=== PATIENT | male | born 1960 | race Caucasian/White ===

== ENCOUNTER 2017-02-07 10:48 | Day surgery (SDC) | payer BC ==
[2017-02-07] VITALS (10 sets, daily range): BP systolic 90–129; BP diastolic 55–80; PULSE 69–114; RESP 17–37; Ht 177.8 cm; Wt 89.0 kg
[~2017-02-07] VITALS: Ht 177.8 cm; Wt 89.0 kg
[~2017-02-07 10:48] MED LIST: CEFAZOLIN 2 GM/50 ML (PMX) 50 ML IVPB SCH; LANTUS; OXYC-284 PO; REGULAR INSULIN; SOD CHLORIDE 0.9% 1,000 ML IV SCH
[2017-02-07] MEDS ORDERED: FENTAnyl 50 MCG/ML VIAL IV PRN (11:30)
[2017-02-07] MEDS ORDERED: hydrALAzine 20 MG INJ IV PRN (11:30)
[2017-02-07] MEDS ORDERED: HYDROmorphONE (0.2 MG/ML) 10ML SYG IV PRN ×2 (11:30)
[2017-02-07] MEDS ORDERED: LABETALOL HCL 20MG INJ IV PRN (11:30)
[2017-02-07 11:42] LABS: BASOPHIL # 0.1 10^3/ul (0.0-0.1); BASOPHILS % 0.8 % (0.0-2.0); EOSINOPHILS # 0.3 10^3/ul (0.0-0.5); EOSINOPHILS % 2.9 % (0.0-7.0); HEMATOCRIT 47.2 % (42.0-52.0); HEMOGLOBIN 16.2 g/dl (14.0-18.0); LYMPHOCYTES # 2.2 10^3/ul (0.8-2.9); LYMPHOCYTES % 21.9 % (15.0-51.0); MEAN CORPUSCULAR HEMOGLOBIN 30.7 pg (29.0-33.0); MEAN CORPUSCULAR HGB CONC 34.3 g/dl (32.0-37.0); MEAN CORPUSCULAR VOLUME 89.4 fl (82.0-101.0); MEAN PLATELET VOLUME 10.4 fl (7.4-10.4); MONOCYTE # 0.8 10^3/ul (0.3-0.9); MONOCYTES % 7.5 % (0.0-11.0); NEUTROPHIL # 6.6 10^3/ul (1.6-7.5); PLATELET COUNT 284 10^3/UL (140-415); RED BLOOD COUNT 5.28 10^6/ul (4.70-6.10); RED CELL DISTRIBUTION WIDTH 13.6 % (11.5-14.5)
[2017-02-07 11:59] LABS: INR 0.92; PROTIME 12.4 Sec (12.2-14.2)
[2017-02-07 12:00] LABS: PARTIAL THROMBOPLASTIN TIME 29.2 Sec (25.0-35.0)
[2017-02-07] MEDS ORDERED: INSULIN REGULAR, HUMAN 100 UNIT/1 ML 3ML VIAL SC ONE (12:00)
[2017-02-07 12:01] LABS: ALBUMIN 4.4 g/dl (3.3-4.9); ALBUMIN/GLOBULIN RATIO 1.46; BILIRUBIN,INDIRECT 0.2 mg/dl (0-1.1); BILIRUBIN,TOTAL 0.2 mg/dl (0.2-1.3); TOTAL PROTEIN 7.4 g/dl (6.1-8.1)
[2017-02-07 12:11] LABS: CALCIUM 9.6 mg/dl (8.4-10.2); CREATININE 0.65 mg/dl (0.61-1.24); POTASSIUM 4.5 mmol/L (3.5-5.1)
[2017-02-07] MEDS ORDERED: FENTAnyl 50 MCG/ML VIAL ONE (12:15)
[2017-02-07] MEDS ORDERED: ACETAMINOPHEN 1000MG/100ML IV 100 ML ONE (12:15)
[2017-02-07] MEDS ORDERED: DEXAMETHASONE 4 MG/ML 1 ML INJ ONE (12:15)
[2017-02-07] MEDS ORDERED: ONDANSETRON 4 MG INJ ONE (12:15)
[2017-02-07] MEDS ORDERED: PROPOFOL 20 ML ONE (12:15)
[2017-02-07] MEDS ORDERED: MIDAZOLAM 1 MG/ML 2 ML INJ ONE (12:15)
--- NOTE | 2017-02-07 12:30 | RADRPT ---
PROCEDURE: XR Chest. CLINICAL INDICATION: Preoperative, mass TECHNIQUE: Single frontal view of the chest was obtained COMPARISON: None FINDINGS: The heart and mediastinum are within normal limits. The lungs are clear. There is no pleural effusion or pneumothorax. RPTAT: AA IMPRESSION: No acute disease. .vIan Brock MD, MD Date Time Electronically viewed and signed by .Ivan Brock MD, on 02/07/2017 12:29 .S/
[2017-02-07] MEDS ORDERED: HYDROmorphONE 2 MG/ML SYG ONE (12:56)
--- NOTE | 2017-02-07 13:17 | SIPON ---
Date/Time of Note Date/Time of Note DATE: 02/07/17 TIME: 13:16 Operative Report Preoperative Diagnosis Cystic mass left posterior cervical region Postoperative Diagnosis Same Operation/Procedure Performed Excision of cystic mass left posterior cervical region with local skin flap advancement closure Surgeon see signature line assistant account executive Dr Schmidt Anesthesia: general Estimated blood loss: 0 - 10 ml's Transfusion Required none Specimen Cystic mass with attached skin left posterior cervical region Grafts/Implants none Complications none ARACELIS MARC MD Feb 07, 2017 13:17
[2017-02-07] MEDS: FENTAnyl 50 MCG/ML VIAL IV PRN ×3 (13:39→14:07)
--- NOTE | 2017-02-07 13:48 | OPR ---
DATE OF OPERATION: 02/07/2017 PREOPERATIVE DIAGNOSIS: Cystic mass, left posterior cervical region. POSTOPERATIVE DIAGNOSIS: Cystic mass, left posterior cervical region. OPERATION PERFORMED: Excision of cystic mass, left posterior cervical region with local skin flap a dvancement closure. ANESTHESIA: General. ANESTHESIOLOGIST: Dr. Mary Oviedo. SURGEON: James Hi MD CLINICAL SUPERVISOR: Dr. Schmidt. INDICATIONS FOR PROCEDURE: The patient is a 56-year-old male who presented with evidence of an infe cted cystic mass. He was treated with antibiotics. The infection has resolved. His presentation w as consistent with probable infected epidermal inclusion cyst. He was counseled on the need for def initive excision of the cyst and cyst capsule. He consented and was scheduled for surgery. DESCRIPTION OF PROCEDURE: The patient was brought to the operating theater, placed under general an esthesia. He was put in the lateral position with the left side up. The left posterior surgical re gion was prepped and draped in usual sterile fashion. An elliptical incision was made around the cy stic lesion with 15 blade scalpel. The specimen was elevated and transected from the surrounding méndez bcutaneous tissue. It was removed and sent for permanent pathologic analysis. The wound was then i rrigated. Minimal bleeding was controlled with cautery. Due to the defect inferior and superior sk in flaps were raised to facilitate closure. This was done using cautery. They were then rotated to gether and the incision was closed with 2-0 nylon sutures in vertical mattress fashion, the entire a roverto was then infiltrated with 0.5% Marcaine local anesthetic with epinephrine, and a sterile dressin g was then applied. Patient tolerated procedure well. Estimated blood loss was 10 mL. There were no complications and the patient was transported in stable condition to the recovery room. Dictated By: JAMES ALLRED/SHANE Conf#: [id number] DID#: [id number]
[2017-02-07] MEDS ORDERED: OXYCODONE/ACETAMINOPHEN (5/325) TAB PO PRN (14:30)
--- NOTE | 2017-02-07 16:08 | RADRPT ---
Vent Rate: 92 bpm RR Interval: [address] Interval: 168 msec QRS Duration: 94 msec QT Interval: 354 msec QTC Interval: 437 msec P-R-T [place]: 49 - 65 - 62 degrees Normal sinus rhythm Normal ECG Electronically Signed By: Lance Ortiz [id number]
== END 2017-02-07 14:50 | disposition home or self-care (01) ==
LOC: SDS 10:48
PROVIDERS: ATTEND Surgery Surgical Oncology
DX: L72.0 Epidermal cyst (principal); L57.8 Other skin changes due to chronic exposure to nonionizing radiation; E11.9 Type 2 diabetes mellitus without complications; J44.9 Chronic obstructive pulmonary disease, unspecified; F41.9 Anxiety disorder, unspecified
CPT/HCPCS: 21555; 71010; 80053; 82962; 85025; 85610; 85730; 88307; 93005; J0131; J1100; J1170; J1815; J2250; J2405; J3010; Z7512; Z7610